=== PATIENT | male | born 1985 | race Caucasian/White ===

== ENCOUNTER 2025-02-25 15:48 | Emergency (ER) | payer MEDICAID, SELFPAY ==
--- OUTSIDE RECORDS SUMMARY | 2025-02-25 15:54 | XMS_ITS | Patient Health Record ---
Author Organization [facility] Address [address] [place] [address] Care Team Providers Care Learning Facilitator Name Role Phone Richar Griffith Primary Care Provider Musa Burns Unavailable [phone] MUSA PURDY Unavailable [phone] Allergies No Known Allergies Reason For Referral No Information Medications Medication SIG (Take, Route, Frequency, Duration) Notes Start Date End Date Status Doxycycline Hyclate 100 MG 1 tablet Orally Twice a day; Duration: 14 days 03/21/2020 Not-Taking Vitamin B12 *Pick strength-form from [facility] for [facility]* Not-Taking Vitamin C *Pick strength-form from [facility]* Not-Taking Flagyl 500 MG 1 tablet Orally BID; Duration: 7 days replaces Cipro *Pick strength-form from [facility]* 09/13/2019 Not-Taking Vitamin D *Pick strength-form from [facility]* Not-Taking Flagyl 500 MG 1 tablet Orally BID; Duration: 7 days *Pick strength-form from [facility]* 11/22/2019 Not-Taking Cipro 500 MG 1 tablet Orally every 12 hrs; Duration: 3 day(s) 09/13/2019 Not-Taking Iron *Pick strength-form from [facility]* Not-Taking Flagyl 500 MG 1 tablet Orally Three times a day; Duration: 7 days *Pick strength-form from [facility] for [facility]* 01/24/2020 Not-Taking Doxycycline Hyclate 100 MG 1 capsule Orally every 12 hrs; Duration: 5 days 08/23/2020 Not-Taking Clotrimazole-Betame thasone 1-0.05 % 1 application Externally Twice a day; Duration: 14 days 02/29/2020 Not-Taking Immunizations Vaccine Route Administration Date Status Comme nts Influenza (split), seasonal, intradermal, preservative free Unknown 07/14/2019 Refused Immunization Anthony patel by from source eCW:: Problems Problem Type SNOMED Code ICD Code Onset Dates Problem Status W/U Status Risk Notes Problem Tinea corporis (01568877) Tinea corporis (B35.4) Active confirmed 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 Problem Pelvic and perineal pain (097312873) Pelvic pain in male (R10.2) Active confirmed Problem 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 Vital Signs Heart Rate 66 /min 03/24/2024 Blood pressure diastolic 90 mm Hg 03/24/2024 Height-cm 167.64 cm 03/24/2024 Weight-kg 79.38 kg 03/24/2024 Height 66 in 03/24/2024 Blood pressure systolic 130 mm Hg 03/24/2024 Weight 175 lbs 03/24/2024 BMI 28.24 kg/m2 03/24/2024 Encounters Encounter Location Date Provider Diagnosis [facility] [address] [place] [address] 02/27/2024 Musa Pevril Testicle pain N50.819 ; Orchitis N45.2 and Hydrocele, left N43.3 [facility] [address] [place] [address] 03/24/2024 MUSA MIKER Epididymitis, right N45.1 ; Orchitis N45.2 ; Hydrocele, left N43.3 and Pain in right testicle N50.811 Assessments Encounter Date Diagnosis (ICD Code) Assessment Notes Treatment Notes Treatment Clinical Notes Section Notes 03/24/2024 Orchitis (ICD-10 - N45.2) Will continue surveillance. He will return in 1yr with UA/PVR. 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 02/27/2024 Orchitis (ICD-10 - N45.2) Pt with normal UA and emptying but LAP with LUTS. PSA of 1.22 on 01/30/24. Also, patient had PETTY. Reviewed images independently as well as reviewed official radiology report. He had findings of a small L hydrocele. However, he reports pain/swelling has been primarily to his R side. Denies any scrotal pain or erythema. Should they increase in size or become painful, we can discuss surgical intervention. I have recommended him a course of bactrim for 2 weeks, but understands it can take 4-6w course at times. We discussed methods for symptomatic support including scrotal support, NSAIDs, and warm sitz baths. He will come back with Dr. Purdy following course of antibiotics for symptom reassessment. We discussed options for surgical intervention versus monitoring, but patient is not having any pain or discomfort. There is good blood flow to testicles, and no concern for infection at this time. Continue conservative management with scrotal elevation and support. If it becomes painful or uncomfortable, he will notify us and we can proceed. For now, no need for further workup. All questions that were asked, were answered. Patient satisfied with plan. 02/27/2024 Testicle pain (ICD-10 - N50.819) Pt with normal UA and emptying but LAP with LUTS. PSA of 1.22 on 01/30/24. Also, patient had PETTY. Reviewed images independently as well as reviewed official radiology report. He had findings of a small L hydrocele. However, he reports pain/swelling has been primarily to his R side. Denies any scrotal pain or erythema. Should they increase in size or become painful, we can discuss surgical intervention. I have recommended him a course of bactrim for 2 weeks, but understands it can take 4-6w course at times. We discussed methods for symptomatic support including scrotal support, NSAIDs, and warm sitz baths. He will come back with Dr. Purdy following course of antibiotics for symptom reassessment. We discussed options for surgical intervention versus monitoring, but patient is not having any pain or discomfort. There is good blood flow to testicles, and no concern for infection at this time. Continue conservative management with scrotal elevation and support. If it becomes painful or uncomfortable, he will notify us and we can proceed. For now, no need for further workup. All questions that were asked, were answered. Patient satisfied with plan. 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 02/27/2024 Hydrocele, left (ICD-10 - N43.3) Pt with normal UA and emptying but LAP with LUTS. PSA of 1.22 on 01/30/24. Also, patient had PETTY. Reviewed images independently as well as reviewed official radiology report. He had findings of a small L hydrocele. However, he reports pain/swelling has been primarily to his R side. Denies any scrotal pain or erythema. Should they increase in size or become painful, we can discuss surgical intervention. I have recommended him a course of bactrim for 2 weeks, but understands it can take 4-6w course at times. We discussed methods for symptomatic support including scrotal support, NSAIDs, and warm sitz baths. He will come back with Dr. Purdy following course of antibiotics for symptom reassessment. We discussed options for surgical intervention versus monitoring, but patient is not having any pain or discomfort. There is good blood flow to testicles, and no concern for infection at this time. Continue conservative management with scrotal elevation and support. If it becomes painful or uncomfortable, he will notify us and we can proceed. For now, no need for further workup. All questions that were asked, were answered. Patient satisfied with plan. 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 03/24/2024 Other I, Jenise Peralta, [place], am scribing for, and in the presence of, Dr. Purdy. I, Dr. Musa Purdy, personally performed the services prescribed in this documentation, as scribed by Jenise Peralta, in my presence, and it is both accurate and complete. 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 Plan Of Treatment Pending Test Test Name Order Date Urinalysis, Routine 02/27/2024 Culture Urine [id number] 02/29/2020 [facility] Abs IgG & IgM, Immunoblot 73778, 36336 10/11/2020 Microscopic Urine [id number] 02/29/2020 Miscellaneous Test 03/21/2020 Herpes Virus DNA QL PCR--[id number] 0 COVID 19 PCR--[id number] 09/27/2019 Next Appt Details Provider Name:Musa Kent, 03/24/2025 11:00:00 AM, [address] [place], [address], Insurance Providers Payer Name Payer Address Payer Phone Subscriber Number Group Number Insured Name Patient Relationship to Insured Coverage Start Date Coverage End Date [employer] [address] [place] [address] [id number] Denilson Chaney Self - patient is the insured Medical (General) History Medical History History ICD Code anemia migraine headaches jaw pain Surgical History Surgery Date(Month/Year) vasectomy 2015 cysto Hospitalization History Reason Date(Month/Year) ER visit dizzy, felt sick, almost passed out 10/03/20
--- OUTSIDE RECORDS SUMMARY | 2025-02-25 15:54 | XMS_ITS | Patient Health Record ---
Author Organization [facility] Address [address] [place] [address] Care Team Providers Care Sports Equipment Racker Name Role Phone Fernanda Bellamy Primary Care Provider Iván Torres Allergies No Known Allergies Reason For Referral No Information Medications Medication SIG (Take, Route, Frequency, Duration) Notes Start Date End Date Status Flagyl 500 MG Tablet 1 tablet Orally BID; Duration: 7 days replaces Cipro 09/13/2019 Not-Taking Cipro 500 MG Tablet 1 tablet Orally every 12 hrs; Duration: 3 day(s) 09/13/2019 Not-Taking Clotrimazole-Betamet hasone 1-0.05 % Cream 1 application Externally Twice a day; Duration: 14 days 02/29/2020 Not-Taking Doxycycline Hyclate 100 MG Capsule 1 capsule Orally every 12 hrs; Duration: 5 days 08/23/2020 Not-Taking Vitamin D Not-Taking Doxycycline Hyclate 100 MG Tablet 1 tablet Orally Twice a day; Duration: 14 days 03/21/2020 Not-Taking Vitamin B12 Not-Taki ng Iron Not-Taking Vitamin C Not-Taking Flagyl 500 MG Tablet 1 tablet Orally BID; Duration: 7 days 11/22/2019 Not-Taking Flagyl 500 MG Tablet 1 tablet Orally Three times a day; Duration: 7 days 01/24/2020 Not-Taking Immunizations Vaccine Route Administration Date Status Comme nts Influenza (split), seasonal, intradermal, preservative free Unknown 07/14/2019 Refused Social History Tobacco Use: Social History Observation Description Date Details (start date - stop date) Former Smoker NA - NA Social History Depression Screening Social Info Question Answer Notes PHQ-9 Little interest or pleasure in doing thin gs Not at all Feeling down, depressed, or hopeless Not at all Trouble falling or staying asleep, or sleeping t oo much Not at all Feeling tired or having little energy Not at all Poor appetite or overeating Not at all Feeling bad about yourself, or that you are a failure, or have let yourself or your family down Not at all Trouble concentrating on thi ngs, such as reading the newspaper or watching television Not at all Moving or speaking so slowly that other people could have noticed. Or the opposite ? being so fidgety or restless that you have been moving around a lot more than usual Not at all Thoughts that you would be b ana off , or of hurting yourself in some way Not at all Total Score 0 Drugs/Alcohol: Social Info Question Answer Notes Alcohol Screen (Audit-C) Did you have a drink containing alcohol in the past year? No Points 0 Interpretation Negative Tobacco Use: Social Info Question Answer Notes xTobacco Use/Smoking Are you a former smoker How long has it been since you last smoked? 5-10 years Additional Details Category Social Info Options Details Miscellaneous: Marital status: Occupation: Works full-time Drugs/Alcohol: Do you smoke marijuana? 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 Plan Of Treatment Pending Test Test Name Order Date Culture Urine [id number] 02/29/2020 [facility] Abs IgG & IgM, Immunoblot 65511, 03906 10/11/2020 Microscopic Urine 20734 02/29/2020 Miscellaneous Test 03/21/2020 Herpes Virus DNA QL PCR--[id number] 0 COVID 19 PCR--32933 09/27/2019 Insurance Providers Payer Name Payer Address Payer Phone Subscriber Number Group Number Insured Name Patient Relationship to Insured Coverage Start Date Coverage End Date [employer] [address] [place] [phone] [id number] Denilson Chaney Self - patient is the insured [place] Medicaid [address] [place] [id number] Denilson Chaney Self - patient is the insured Medical (General) History Medical History History ICD Code anemia migraine headaches jaw pain Surgical History Surgery Date(Month/Year) vasectomy 2014 Hospitalization History Reason Date(Month/Year) ER visit dizzy, felt sick, almost passed out 10/03/20
--- OUTSIDE RECORDS SUMMARY | 2025-02-25 15:54 | XMS_ITS | Continuity of Care Document ---
Author Organization [place] [facility] [place] Address [address] [address] Assessment No assessment recorded. Plan of Treatment Reminders Order Date Submit Date Provider Last Modified By Organization Details Last Modified Time Details Appointments None recorded. Lab urinalysis, dipstick 2024 In-House Results, For Internal Use Only, Do Not Delete/merge, [id number] 12:03:24 unlisted lab - trichomonas amplified 2024 [place] [facility], [address], [address], [place], [address], 5 14:56:08 CT + NG DNA, PCR, unspecified specimen 2024 [place] [facility], [address], [address], [place], [address], 14:56:07 Referral None recorded. Procedures None recorded. Surgeries None recorded. Imaging None recorded. Medication Orders Cipro 500 mg tablet 2024 025 [facility], [address] [place], [address], 12:17:53 Patient TargetsNo targets recorded. Patient Instructions Encounter Date Encounter Id Patient Instructions Last Modified By Organization Details Last Modified Time 02/18/2025 [id number] Patient discharged to self to home in stable condition. Follow up instructions given. Not available 02/18/2025 12:11:06 Reason for Referral None Reported. Results Created Date Observation Date Name Description Value Unit Range Abnormal Flag Note LastModifiedBy Organization Detail LastModifiedTime 02/09/2002/08/2025 URINA LYSIS , DIPST ICK leukocytes Small Not Available [facility] readeo Hie [address], [place], [address], 02/08/2025 23:35:45 02/09/20 25 02/08/2025 URINA LYSIS , DIPST ICK nitrite negati ve Not Available [place] readeo Hie [address], [place], [address], 02/08/2025 23:35:45 02/09/20 25 02/08/2025 URINA LYSIS , DIPST ICK urobilinogen .2 Not Available [facility] readeo Hie [address], [place], [address], 02/08/2025 23:35:45 02/09/20 25 02/08/2025 URINA LYSIS , DIPST ICK protein 30 Not Available [place] readeo Hie [address], [place], [address], 02/08/2025 23:35:45 02/09/20 25 02/08/2025 URINA LYSIS , DIPST ICK pH 6.5 Not Available [place] readeo Hie [address], [place], [address], 02/08/2025 23:35:45 02/09/20 25 02/08/2025 URINA LYSIS , DIPST ICK blood Large Not Available [place] readeo Hie [address], [place], [address], 02/08/2025 23:35:45 02/09/20 25 02/08/2025 URINA LYSIS , DIPST ICK specific gravity 1.025 Not Available [facility] readeo Hie [address], [place], [address], 02/08/2025 23:35:45 02/09/20 25 02/08/2025 URINA LYSIS , DIPST ICK ketone Negati ve Not Available [facility] Hie [address], [place], [address], 02/08/2025 23:35:45 02/09/2002/08/2025 URINA LYSIS , DIPST ICK bilirubin Negati ve Not Available [facility] Hie [address], [place], [address], 02/08/2025 23:35:45 02/09/20 25 02/08/2025 URINA LYSIS , DIPST ICK glucose Negati ve Not Available [facility] Hie [address], [place], [address], 02/08/2025 23:35:45 02/09/20 25 02/08/2025 urina lysis , dipst ick Leukocytes Small Not Available In-Hous e Results For Internal Use Only, Do Not Delete/merge, 02/08/2025 14:19:04 02/09/2002/08/2025 urina lysis , dipst ick Nitrite negati ve Not Available In-House Results For Internal Use Only, Do Not Delete/merge, 02/08/2025 14:19:04 02/09/2002/08/2025 urina lysis , dipst ick Urobilinogen .2 Not Available In-Ho use Results For Internal Use Only, Do Not Delete/merge, 02/08/2025 14:19:04 02/09/2002/08/2025 urina lysis , dipst ick Protein 30 Not Available In-House Results For Internal Use Only, Do Not Delete/merge, 02/08/2025 14:19:04 02/09/20 25 02/08/2025 urina lysis , dipst ick pH 6.5 Not Available In-House Results For Internal Use Only, Do Not Delete/merge, 02/08/2025 14:19:04 02/09/20 25 02/08/2025 urina lysis , dipst ick Blood Large Not Available In-House Results For Internal Use Only, Do Not Delete/merge, 02/08/2025 14:19:04 02/09/20 25 02/08/2025 urina lysis , dipst ick Specific [place] 1.025 Not Available In-Mauricio se Results For Internal Use Only, Do Not Delete/merge, 02/08/2025 14:19:04 02/09/20 25 02/08/2025 urina lysis , dipst ick Ketone Negati ve Not Available In-House Results For Internal Use Only, Do Not Delete/merge, 02/08/2025 14:19:04 02/09/20 25 02/08/2025 urina lysis , dipst ick Bilirubin Negati ve Not Available In-House Results For Internal Use Only, Do Not Delete/merge, 02/08/2025 14:19:04 02/09/20 25 02/08/2025 urina lysis , dipst ick Glucose Negati ve Not Available In-House Results For Internal Use Only, Do Not Delete/merge, 02/08/2025 14:19:04 02/19/20 25 02/19/2025 GC/CH LAMYD IA - AMP N gonorrhoeae Negati ve negati ve Not Available [facility] [address] [place], [address], 02/19/2025 14:56:07 02/19/20 25 02/19/2025 GC/CH LAMYD IA - AMP chlamydia trachomatis Negati ve negati ve Comme nt for GC/CH LAMYD IA - AMP This test is inten ded for medic al purpo ses only and is not valid for the evalu ation of suspe cted sexua l abuse or for other foren sic purpo ses. The perfo rmanc e of this test has not been evalu ated for pedia tric patie nts. In addit ion to the FDA appro michael speci men types , this NAAT assay was valid ated by [facility] for SureP ath and ureth ral swab speci mens. FDA clear ance or appro ramone is not requi red for clini geena use. Not Available [facility] [address] [place], [address], 02/19/2025 14:56:07 02/19/2002/19/2025 TRICH OMONA S - AMP trichomonas vaginalis Negati ve negati ve Comme nt for TRICH OMONA S - AMP This test is inten ded for medic al purpo ses only and is not valid for the evalu ation of suspe cted sexua l abuse or for other foren sic purpo ses. The perfo rmanc e of this test has not been evalu ated for pedia tric patie nts. In addit ion to the FDA appro michael speci men types , this NAAT assay was valid ated by [facility] for SureP ath and ureth ral swab speci mens. FDA clear ance or appro ramone is not requi red for clini geena use. Not Available [facility] [address] [facility], [place], [address], 02/19/2025 14:56:08 02/19/2002/18/2025 URINA LYSIS , DIPST ICK leukocytes Negati ve Not Available [facility] Hie [address], [place], [address], 02/18/2025 17:07:27 02/19/2002/18/2025 URINA LYSIS , DIPST ICK nitrite negati ve Not Available [facility] Hie [address], [place], [address], 02/18/2025 17:07:27 02/19/2002/18/2025 URINA LYSIS , DIPST ICK urobilinogen .2 Not Available [facility] Hie [address], [place], [address], 02/18/2025 17:07:27 02/19/2002/18/2025 URINA LYSIS , DIPST ICK protein Negati ve Not Available [facility] Hie [address], [place], [address], 02/18/2025 17:07:27 02/19/2002/18/2025 URINA LYSIS , DIPST ICK pH 6.0 Not Available [facility] Hie [address], [place], [address], 02/18/2025 17:07:27 02/19/2002/18/2025 URINA LYSIS , DIPST ICK blood Small Not Available [facility] Hie [address], [place], [address], 02/18/2025 17:07:27 02/19/2002/18/2025 URINA LYSIS , DIPST ICK specific gravity 1.020 Not Available [facility] Hie [address], [place], [address], 02/18/2025 17:07:27 02/19/2002/18/2025 URINA LYSIS , DIPST ICK ketone Negati ve Not Available [facility] Hie [address], [place], [address], 02/18/2025 17:07:27 02/19/2002/18/2025 URINA LYSIS , DIPST ICK bilirubin Negati ve Not Available [facility] [address], [place], [address], 02/18/2025 17:07:27 02/19/2002/18/2025 URINA LYSIS , DIPST ICK glucose Negati ve Not Available [facility] Hie [address], [place], [address], 02/18/2025 17:07:27 02/19/2002/18/2025 urina lysis , dipst ick Leukocytes Negati ve Not Available In-House Results For Internal Use Only, Do Not Delete/merge, 02/18/2025 12:02:02/19/2002/18/2025 urina lysis , dipst ick Nitrite negati ve Not Available In-House Results For Internal Use Only, Do Not Delete/merge, 02/18/2025 12:02:02/19/2002/18/2025 urina lysis , dipst ick Urobilinogen .2 Not Available In-Ho use Results For Internal Use Only, Do Not Delete/merge, 02/18/2025 12:02:02/19/2002/18/2025 urina lysis , dipst ick Protein Negati ve Not Available In-House Results For Internal Use Only, Do Not Delete/merge, 02/18/2025 12:02:02/19/2002/18/2025 urina lysis , dipst ick pH 6.0 Not Available In-House Results For Internal Use Only, Do Not Delete/merge, 02/18/2025 12:02:02/19/2002/18/2025 urina lysis , dipst ick Blood Small Not Available In-House Results For Internal Use Only, Do Not Delete/merge, 02/18/2025 12:02:28 02/19/2002/18/2025 urina lysis , dipst ick Specific [place] 1.020 Not Available In-[place]icio se Results For Internal Use Only, Do Not Delete/merge, 02/18/2025 12:02:02/19/20 25 02/18/2025 urina lysis , dipst ick Ketone Negati ve Not Available In-House Results For Internal Use Only, Do Not Delete/merge, 02/18/2025 12:02:02/19/20 25 02/18/2025 urina lysis , dipst ick Bilirubin Negati ve Not Available In-House Results For Internal Use Only, Do Not Delete/merge, 02/18/2025 12:02:02/19/20 25 02/18/2025 urina lysis , dipst ick Glucose Negati ve Not Available In-House Results For Internal Use Only, Do Not Delete/merge, [id number] 02/18/2025 12:02:28 Result Notes None recorded. Procedures Surgical History Date Name Laterality Status Provider Name and Address Organization Details Recorded Time Vasectomy completed Not Available [facility] 1 06/04/2023 21:06:06 Imaging Results None recorded. Procedure Notes None recorded. Medical Equipment None Reported. Allergies No known drug allergies Medications Name Sig Start Date Stop Date Status Note LastModified by Organization Details LastModified Time promethazin e-DM 6.25 mg-15 mg/5 mL oral syrup Take 5 mL every 4-6 hours by oral route. 02/08 completed Not Available Not Available Not Available azithromyci n 250 mg tablet TAKE 2 TABLETS (500 MG) BY ORAL ROUTE ONCE DAILY FOR 1 DAY THEN 1 TABLET (250 MG) BY ORAL ROUTE ONCE DAILY FOR 4 DAYS active Not Available Not Available No t Available tizanidine 4 mg tablet Take 1 tablet 3 times a day by oral route as needed. 04/16 completed Not Available Not Available Not Available benzonatate 200 mg capsule Take 1 capsule 3 times a day by oral route for 10 days. 02/08 completed Not Available Not Available Not Available acetaminoph en 300 mg-codeine 30 mg tablet Take 1 tablet 3 times a day by oral route as needed for 7 days. 01/05 completed Not Available Not Available Not Available sulfamethox azole 800 mg-trimetho prim 160 mg tablet TAKE 1 TABLET BY MOUTH TWICE DAILY FOR 14 DAYS 04/16 completed Not Available Not Available Not Available ondansetron 8 mg disintegrat ing tablet Place 1 tablet twice a day by transling ual route as needed. active Not Available Not Available No t Available amoxicillin 875 mg tablet Take 1 tablet every 12 hours by oral route for 14 days. 02/18 completed Not Available Not Available Not Available hydrocodone 7.5 mg-acetamin ophen 325 mg tablet TAKE 1 TABLET BY MOUTH EVERY 4 HOURS NEEDED FOR PAIN 01/28 completed Not Available Not Available Not Available neomycin-po lymyxin-dex ameth 3.5 mg/mL-10,00 0 unit/mL-0.1 % eye drops instill 2 drops into affected eye(s) EVERY 3 TO 4 HOURS 05/07 completed Not Available Not Available Not Available Cipro 500 mg tablet Take 1 tablet every 12 hours by oral route for 5 days. 2024 active Not Available Not Available Not Avai lable methylpredn isolone 4 mg tablets in a dose pack TAKE DIRECTED ON PACKAGE FOR 6 DAYS 02/07 completed Not Available Not Available Not Available naproxen 500 mg tablet Take 1 tablet twice a day by oral route as needed. 04/16 completed Not Available Not Available Not Available chlorhexidi ne gluconate 0.12 % mouthwash SWISH 15 ML FOR 30 SECONDS THEN SPIT TWICE DAILY FOR 7 DAYS 06/23 completed Not Available Not Available Not Available Vitals Date Recorded Body height Body temperature Oxygen saturation Oxygen saturation in Arterial blood by Pulse oximetry Heart rate Systolic And Diastolic Provider Name and Address Organization Details Last Updated DateTime 5 167.64 cm 98.4 [degF] 99 % 99 % 63 /min 113/77 mm[Hg] [facility] 5 11:56:19 Social History Question Answer Notes LastModified by Organizat ion Details LastModified Time Tobacco Smoking Status Former Smoker Not Available [facility] 04/04/2024 21:06:31 Are You Blind Or Do You Have Difficulty Seeing? No [id number] Information not available 04/04/2024 What Is Your Level Of Caffeine Consumption? Occasional [id number] Information not available 04/04/2024 Are You Deaf Or Do You Have Serious Difficulty Hearing? No [id number] Information not available 04/04/2024 What Type Of Diet Are You Following? REGULAR [id number] Information not available 04/04/2024 What Was The Date Of Your Most Recent Tobacco Screening? 11/22/2024 [email or web address] Information not available 11/22/2024 How Many Children Do You Have? 5 [id number] Information not available 04/04/2024 What Is Your Relationship Status? [id number] Information not available 04/04/2024 Has Tobacco Cessation Counseling Been Provided? No [id number] Information not available 04/04/2024 Do You Have Difficulty Walking Or Climbing Stairs? No [id number] Information not available 04/04/2024 Sex: Unknown Functional Status Question Answer Note LastModified by Organizat ion Details LastModified Time Do you use any illicit or recreational drugs? No [id number] Information not available 04/04/2024 Do you or have you ever used any other forms of tobacco or nicotine? No [id number] Information not available 04/04/2024 What is your level of alcohol consumption? None [id number] Information not available 04/04/2024 Are you currently employed? Yes [id number] Information not available 04/04/2024 Do you have difficulty doing errands alone? No [id number] 00 Information not available 04/04/2024 Are you able to care for yourself independently? Yes [id number] Information not available 04/04/2024 Do you have difficulty dressing, bathing, grooming, or toileting? No [id number].[id number] 00 Information not available 04/04/2024 Do you or have you ever used any nicotine-free cigarettes, vape, or chewing tobacco? No [email or web address] Information not available 04/16/2024 Mental Status Question Answer Note LastModified by Organizat ion Details LastModified Time Do you have difficulty concentrating, remembering or making decisions? No [id number] 0 Information not available 04/04/2024 Family History Relationship Description Onset Age of this Age Resolved Age Notes LastModified by Organization Details LastModified Time Father No current problems or disability [email or web address] Not available 04/16 08:54:23 Mother No current problems or disability [email or web address] Not available 04/16 08:54:23 Medical History No medical history recorded. Past Encounters Encounter ID Performer Location Encounter Start Date Encounter Closed Date Diagnosis/Indication Diagnosis SNOMED-CT Code Diagnosis ICD10 Code Diagnosis IMO Codes Diagnosis Note [id number] LILI NAZARIO [address] [address] 01/28/2025 11:49:55 01/31/2025 14:58:04 Viral upper respiratory tract infection 965036378 J06.9 [id number] pt advised to complete course of antibiotic s, alternate tylenol/ib u for fever, stay well hydrated, and to follow up to clinic if symptoms don't resolve or worsen Chronic cough 08635630 R 05.3 04076 use as directed. [id number] LILI NAZARIO [address] [address] 02/08/2025 14:13:31 02/08/2025 15:04:10 Julio César hematuria [id number] R31.0 176086 pt advised to complete course of antibiotic s, d/c amoxicilli n that he was taking and follow up in one week. if symptoms haven't approved will set up with referral to urology. [id number] LILI NAZARIO [address] [address] 02/18/2025 11:39:42 02/22/2025 12:40:36 Dysuria [id number] R30.0 07851 continue abx, will check urine for STI and call with update next friday. if symptoms persists we will send to urology Health Concerns Section Related Observation LastModified by Organization Detai ls LastModified Time None Recorded Concern Status LastModified by Organization Details LastModified Time None Recorded Payers Encounter Date Sequence Insurance Name Policy Number Policy Tapia Covered Member ID Tapia Member ID Guarantor Name 02/18/2025 1 [employer]HMET DENISE - [employer] 2 (PPO) Denilson Chaney [id number] 1 Denilson Chaney Notes Date Note Type Note Provider Name and Address Organization Details Recorded Time 5 text/html HematuriaReported by PatientHPIFor associated symptoms, patient reportshematuriabut reportsno abdominal pain,no back pain,no groin pain,no chills,no constipation,no diarrhea,no dribbling,no dysuria,complete emptying,no frequency,no nausea,no nocturia,no odor,no straining stream,no stress incontinence,no temperature,no urgency,no urge incontinence,no vomiting, andno weight loss. For quality, patient reportsblood color bright red. For severity, patient reportsno pain. For duration, patient reportsintermittent. For onset/timing, patient reportsinfrequent. For modifying factors, patient reportsnothing makes it worseandnothing gives relief. Patient states that he peed blood this morning but he is not having any pain. ABELARDO RUBALCAVA PA-C [address], [place], [address], [place] - [facility] 02/18/2025 12:11:25
--- OUTSIDE RECORDS SUMMARY | 2025-02-25 15:55 | XMS_ITS | Data Portability ---
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 Plan of Treatment Reminders Order Date Submit Date Provider Last Modified By Organization Details Last Modified Time Details Appointments None recorded. Lab CMP, serum or plasma 2020 021 DAIANA Not available 05:04:36 CBC w/ auto diff 2020 DAIANA Not available 04:32:40 ESR (erythrocyt e sedimentati on rate), blood 2020 DAIANA Not available 04:50:39 C-reactive protein, quantitativ e, serum or plasma 2020 021 DAIANA Not available 05:04:37 urinalysis complete, reflex culture 2020 021 [email or web address] Not available 12:34:04 Referral behavioral health referral 2019 020 [email or web address] 5 [facility], [address] [place], [address], 0 14:10:08 Procedures None recorded. Surgeries None recorded. Imaging XR, kidney + ureter + bladder 2020 021 [facility] (Registration ), [address], [place], [address], 10:07:52 Medication Orders None recorded. Patient TargetsNo targets recorded. Patient Instructions Encounter Date Encounter Id Patient Instructions Last Modified By Organization Details Last Modified Time 12/29/2019 [id number] Meds as directed. Care instructions given. Return to clinic if sx persist or worsen. RTC as scheduled- sooner if needed. Discharged to self to home in stable condition. [email or web address] Not available 12/29/2019 17:47:14 04/26/2020 [id number] healthy upper back: exercises [email or web address] Not available 04/26/2020 19:49:17 back pain: care instructions [email or web address] Not available 04/26/2020 19:49:17 Patient discharged to self to home in stable condition. Follow up instructions given. [email or web address] Not available 04/26/2020 17:07:46 06/21/2020 [id number] Patient discharged to self to ER in stable condition. Follow up instructions given. [email or web address] Not available 06/22/2020 10:07:36 10/31/2020 [id number] Patient discharged to self to home in stable condition. Follow up instructions given. [email or web address] Not available 11/01/2020 17:10:03 02/15/2021 [id number] [facility] [place]ACC[place]_HESITANCY [email or web address] Not available 02/15/2021 15:46:10 Jayde Learns About Germ-Busting [email or web address] Not available 02/15/2021 15:46:10 coronavirus (covid-19): care instructions [email or web address] Not available 02/15/2021 15:46:09 learning about coronavirus (covid-19) [email or web address] Not available 02/15/2021 15:46:10 Patient discharged to self to home in stable condition. Follow up instructions given. [email or web address] Not available 02/15/2021 15:45:35 Reason for Referral Behavioral Health Referral f or Anxiety Referring Physician: Venita Avery, Family Medicine, Encounter Date: 12/29/2019 Results Created Date Observation Date Name Description Value Unit Range Abnormal Flag Note LastModifiedBy Organization Detail LastModifiedTime 06/21/19 21 06/23/2020 cultu re, urine urine culture See Note URINE CULTU RE Speci men Urine Winter Top Tube CUL TURE* * No growt h (<1,0 00 cfu/m L) BMI - [facility] [address] [place] [address] Labor atory Dire tor: [place] M.D. CLIA# [id number] Not Available [facility] [address] [place], [address], 06/23/2020 11:53:42 11/01/19 21 11/01/2020 CBC w/ auto diff WBC 3.5 K/uL 4.0-11 .0 low Not Available [facility] [address] [place], [address], 11/01/2020 04:32:40 11/01/19 21 11/01/2020 CBC w/ auto diff RBC 4.78 M/uL 4.30-5 .70 Not Available [facility] [address] [place], [address], 11/01/2020 04:32:40 11/01/19 21 11/01/2020 CBC w/ auto diff hemoglobin 14.0 g/dL 13.0-1 7.5 Not Available [facility] [address] [place], [address], 11/01/2020 04:32:40 11/01/19 21 11/01/2020 CBC w/ auto diff hematocrit 41.7 % 39.0-5 5.0 Not Available [facility] [address] [place], [address], 11/01/2020 04:32:40 11/01/19 21 11/01/2020 CBC w/ auto diff MCV 87.2 fL 78.0-1 02.0 Not Available [facility] [address] [place], [address], 11/01/2020 04:32:40 11/01/19 21 11/01/2020 CBC w/ auto diff MCH 29.3 pg 25.0-3 5.0 Not Available [facility] [address] [place], [address], 11/01/2020 04:32:40 11/01/19 21 11/01/2020 CBC w/ auto diff MCHC 33.6 g/dL 30.0-3 8.0 Not Available [facility] [address] [place], [address], 11/01/2020 04:32:40 11/01/19 21 11/01/2020 CBC w/ auto diff RDW 13.3 % 11.5-1 6.0 Not Available [facility] [address], [place], [address], 11/01/2020 04:32:40 11/01/19 21 11/01/2020 CBC w/ auto diff platelet count 210 K/uL 150-45 0 Not Available [facility] [address] [place], [address], 11/01/2020 04:32:40 11/01/19 21 11/01/2020 CBC w/ auto diff abs neutrophils 1.3 K/uL 1.8-7. 0 low Not Available [facility] [address] [place], [address], 11/01/2020 04:32:40 11/01/19 21 11/01/2020 CBC w/ auto diff abs lymphocytes 1.4 K/uL 1.0-4. 0 Not Available [facility] [address] [place], [address], 11/01/2020 04:32:40 11/01/19 21 11/01/2020 CBC w/ auto diff abs monocytes 0.8 K/uL 0.1-1. 1 Not Available [facility] [address], [place], [address], 11/01/2020 04:32:40 11/01/19 21 11/01/2020 CBC w/ auto diff abs eosinophils 0.0 K/uL 0.0-0. 5 Not Available [facility] [address] [place], [address], 11/01/2020 04:32:40 11/01/19 21 11/01/2020 CBC w/ auto diff abs basophils 0.0 K/uL 0.0-0. 3 Not Available [facility] [address] [place], [address], 11/01/2020 04:32:40 11/01/19 21 11/01/2020 CBC w/ auto diff abs immature grans 0.0 K/uL 0.0-0. 1 Not Available [facility] [address] [place], [address], 11/01/2020 04:32:40 11/01/19 21 11/01/2020 CBC w/ auto diff neutrophils 37.1 % Not Available [facility] [address] [place], [address], 11/01/2020 04:32:40 11/01/19 21 11/01/2020 CBC w/ auto diff lymphocytes 40.5 % Not Available [facility] [address] [place], [address], 11/01/2020 04:32:40 11/01/19 21 11/01/2020 CBC w/ auto diff monocytes 22.4 % Not Available [facility] [address], [place], [address], 11/01/2020 04:32:40 11/01/19 21 11/01/2020 CBC w/ auto diff eosinophils 0.0 % Not Available [facility] [address] [place], [address], 11/01/2020 04:32:40 11/01/19 21 11/01/2020 CBC w/ auto diff basophils 0.0 % Not Available [facility] [address], [place], [address], 11/01/2020 04:32:40 11/01/19 21 11/01/2020 CBC w/ auto diff immature grans 0.0 % Not Available [facility] [address], [place], [address], 11/01/2020 04:32:40 11/01/19 21 11/01/2020 CBC w/ auto diff nucleated RBCs <1.0 /100_ WBCs <1 Not Available [facility] [address], [place], [address], 11/01/2020 04:32:40 11/01/19 21 11/01/2020 ESR (eryt hrocy te sedim entat ion rate) , blood sedimentatio n rate 9 mm/HR <15 Not Available [facility] [address], [place], [address], 11/01/2020 04:50:39 11/01/19 21 11/01/2020 CMP, serum or plasm a sodium 140 mEq/L 135-14 6 Not Available [facility] [address], [place], [address], 11/01/2020 05:04:36 11/01/19 21 11/01/2020 CMP, serum or plasm a potassium 4.0 mEq/L 3.5-5. 4 Not Available [facility] [address] [place], [address], 11/01/2020 05:04:36 11/01/19 21 11/01/2020 CMP, serum or plasm a chloride 105 mEq/L 95-107 Not Available [facility] [address] [place], [place], [address], 11/01/2020 05:04:36 11/01/19 21 11/01/2020 CMP, serum or plasm a carbon dioxide 23 mEq/L 19-31 Not Available [facility] [address] [place], [address], 11/01/2020 05:04:36 11/01/19 21 11/01/2020 CMP, serum or plasm a anion gap 12 mEq/L 7-23 Not Available [facility] [address] [place], [address], 11/01/2020 05:04:36 11/01/1911/01/2020 CMP, serum or plasm a glucose non-fasting 83 mg/dL 70-139 Not Available [facility] [address] [place], [address], 11/01/2020 05:04:36 11/01/1911/01/2020 CMP, serum or plasm a urea nitrogen (BUN) 9 mg/dL 6-20 Not Available [facility] [address] [place], [address], 11/01/2020 05:04:36 11/01/19 21 11/01/2020 CMP, serum or plasm a creatinine 0.89 mg/dL 0.80-1 .40 Not Available [facility] [address] [place], [address], 11/01/2020 05:04:36 11/01/19 21 11/01/2020 CMP, serum or plasm a eGFR 130 mL/mi n/1.7 3m'2 >59 Not Available [facility] [address] [place], [address], 11/01/2020 05:04:36 11/01/19 21 11/01/2020 CMP, serum or plasm a eGFR non- amer 112 mL/mi n/1.7 3m'2 >59 Not Available [facility] [address] [place], [address], 11/01/2020 05:04:36 11/01/19 21 11/01/2020 CMP, serum or plasm a BUN/creatini ne ratio [address] [facility] [address], [place], [address], 11/01/2020 05:04:36 11/01/19 21 11/01/2020 CMP, serum or plasm a calcium total 9.9 mg/dL 8.5-10 .5 Not Available [facility] [address] [place], [address], 11/01/2020 05:04:36 11/01/19 21 11/01/2020 CMP, serum or plasm a protein total 6.8 g/dL 6.1-8. 3 Not Available [facility] [address], [place], [address], 11/01/2020 05:04:36 11/01/19 21 11/01/2020 CMP, serum or plasm a albumin 4.6 g/dL 3.5-5. 2 Not Available [facility] [address], [place], [address], 11/01/2020 05:04:36 11/01/19 21 11/01/2020 CMP, serum or plasm a globulin 2.2 g/dL 1.7-4. 3 Not Available [facility] [address] [facility] [place], [address], 11/01/2020 05:04:36 11/01/19 21 11/01/2020 CMP, serum or plasm a A/G ratio 2.1 ratio 0.9-2. 8 Not Available [facility] [address] [facility] [place], [address], 11/01/2020 05:04:36 11/01/19 21 11/01/2020 CMP, serum or plasm a bilirubin total 0.6 mg/dL 0.0-1. 2 Not Available [facility] [address] [facility] [place], [address], 11/01/2020 05:04:36 11/01/19 21 11/01/2020 CMP, serum or plasm a alkaline phosphatase 65 U/L 40-112 Not Available [facility] [address] [facility] [place], [address], 11/01/2020 05:04:36 11/01/19 21 11/01/2020 CMP, serum or plasm a AST (SGOT) 24 U/L 9-50 Not Available [facility] [address] [facility] [place], [address], 11/01/2020 05:04:36 11/01/19 21 11/01/2020 CMP, serum or plasm a ALT (SGPT) 27 U/L 5-50 Not Available [facility] [address] [facility] [place], [address], 11/01/2020 05:04:36 11/01/19 21 11/01/2020 C-kobi ctive prote in, quant itati ve, serum or plasm a C-reactive protein 0.2 mg/dL <0.5 Not Available [facility] [address] [place], [address], 11/01/2020 05:04:37 11/01/19 21 11/01/2020 no speci men for test reque sted test set(s) cancelled URM Not Available [facility] [address] [place], [address], 11/01/2020 11:59:36 11/01/19 21 11/01/2020 no speci men for test reque sted test cancelled 1 URINAL YSIS W/MICR O Not Available [facility] ([facility] [address] [place], [address], 11/01/2020 11:59:36 11/01/19 21 11/01/2020 no speci men for test reque sted test cancelled 2 SPOKE WITH STACY FOR COLLEC TION Comme nt for NO SPECI MEN RECEI PRISCILLA Pleas e refer to the [facility] Test Colle ction Manua l for speci men submi ssion guide lines . Not Available [facility] [address] [place], [address], 11/01/2020 11:59:36 11/04/19 21 11/02/2020 XR, kidne y + urete r + bladd er No observ ation record ed. [email or web address] [facility] [address] [place] [facility] [place], [address], 11/07/2020 10:42:30 11/16/1911/02/2020 XR, kidne y + urete r + bladd er No observ ation record ed. [email or web address] [facility] (Registration ) [address], [place], [address], 11/16/2020 09:18:02 Result Notes None recorded. Problems Name Problem SNOMED Code Status Onset Date Resolution Date Notes Provider Name and Address Organization Details Recorded Time Anxiety disorder 463451713 [facility] 14:40:09 Varicell a 39860444 Completed 201606/09/2018 Removal Reason: resolved Venita Avery NP, [address], [place], [address], [facility] [email or web address] [facility] 9 15:17:10 Constipa tion 29149355 Completed 201606/09/2018 Removal Reason: resolved Venita Avery NP, [address], [place], [address], [facility] [employer] [facility] 9 15:16:57 [facility] [id number] Completed 201606/09/2018 Removal Reason: resolved Venita Avery NP, [address], [place], [address], [facility] [employer] [facility] 9 15:17:03 Tobacco user [id number] Completed 201606/09/2019 Removal Reason: resolved Venita Avery NP, [address], [place], [address], [facility] [employer] [facility] 0 10:02:00 Persiste nt cough 871365976 Completed 201606/09/2018 Removal Reason: resolved Venita Avery NP, [address], [place], [address], [facility] [employer] [facility] 9 15:16:47 Sinus headache 1688854 Completed 201706/09/2018 Removal Reason: resolved Venita Avery NP, [address], [place], [address], [facility] 9 15:16:52 Adult health examinat ion Completed 201811/01/2020 LEONEL Centeno APRN [address], [place], [address], [facility] 17:10:31 Fatigue 92745322 Active 2018 Venita Avery NP, [address], [place], [address], [facility] 9 15:35:13 Cough 99004120 Completed 201801/13/2019 Removal Reason: resolved Shagufta Tim varela, [facility] 9 16:24:37 Body mass index 25-29 - overweig ht 165247474 Active 2018 Venita Avery NP, [address], [place], [address], [facility] 9 17:43:48 Iron deficien cy 20943066 Active 2018 Venita Avery NP, [address], [place], [address], [facility] 9 14:11:20 Vitamin D deficien cy 19292545 Active 2018 Venita Avery NP, [address], [place], [address], [facility] 9 14:12:04 Upper respirat ory infectio n 89460920 Completed 201801/13/2019 Removal Reason: resovled Shagufta Tim null, [facility] 9 16:24:27 Pain of hip region 80983854 Completed 201801/13/2019 Removal Reason: resovled Shagufta Tim null, [facility] 9 16:24:17 Allergic reaction 787186280 Completed 201803/16/2019 Removal Reason: resolved Venita Avery NP, [address], [place], [address], [facility] - [employer] [facility] 9 18:57:37 Pruritic rash 32149344 Completed 201803/16/2019 Removal Reason: resolved Venita Avery NP, [address], [place], [address], [place] [facility] [employer] [facility] 9 18:57:32 Disorder of vitamin B12 790092964 Active 2018 Venita Avery NP, [address], [place], [address], [facility] - [employer] [facility] 9 10:39:06 Abdomina l pain 15656865 Completed 201806/09/2019 Removal Reason: resolved Venita Avery NP, [address], [place], [address], [facility] - [employer] [facility] 0 10:01:42 Bronchit is [id number] Completed 201806/09/2019 Removal Reason: resolved Aditi Sevilla null, [place] - [employer] [facility] 0 09:46:41 History of angioede ma 66676010528 08 Active 2019 Venita Avery NP, [address], [place], [address], [facility] - [employer] [facility] 0 10:13:13 Dysuria 08240629 Active 2019 Venita Avery NP, [address], [place], [address], [place] [facility] [employer] [facility] 0 10:50:32 Anxiety 98830805 Active 2019 Venita Avery NP, [address], [place], [address], [facility] 0 05:20:41 Epigastr ic pain 55971794 Active 2019 Venita Avery , [employer] INVESTIGATOR, [address], [place], [address], [facility] 0 16:16:14 Pain in throat 231311606 Completed 201911/01/2020 LEONELRA HANCOCK N, CERTIFIED PHARMACY TECHNICIAN [address], [place], [address], [facility] 17:10:23 Respirat ory tract congesti on and cough 564185727 Completed 201911/01/2020 LEONEL Centeno, CERTIFIED PHARMACY TECHNICIAN [address], [place], [address], [facility] 17:10:19 Urethrit is 95182141 Completed 201911/01/2020 LEONEL Centeno, CERTIFIED PHARMACY TECHNICIAN [address], [place], [address], [facility] 17:10:14 Pain of right testicle 83197635203 062307 Active 2020 LEONEL Centeno, CERTIFIED PHARMACY TECHNICIAN [address], [place], [address], [facility] 17:07:24 Lower abdomina l pain 73062612 Active 2020 LEONEL Centeno CERTIFIED PHARMACY TECHNICIAN [address], [place], [address], [facility] 14:55:44 Tick bite 91467604 Active 2020 LEONEL Centeno CERTIFIED PHARMACY TECHNICIAN [address], [place], [address], [facility] 1 15:45:26 Problem Notes None recorded. Procedures Surgical History Date Name Laterality Status Provider Name and Address Organization Details Recorded Time 4 Oral surgery procedure completed Venita Avery NP, [address], [place], [address], [facility] 06/09/2019 10:04:39 Vasectomy completed Venita Avery NP, [address], [place], [address], [facility] 09/12/2019 06:45:14 Imaging Results None recorded. Procedure Notes None recorded. Medical Equipment None Reported. Allergies No known drug allergies Medications Name Sig Start Date Stop Date Status Note LastModified by Organization Details LastModified Time amoxicill in 500 mg capsule 06/09 completed Not Available Not Available Not Available doxycycli ne hyclate 100 mg capsule TAKE ONE CAPSULE BY MOUTH EVERY TWELVE HOURS FOR 5 DAYS 10/31 completed Not Available Not Available Not Available sucralfat e 1 gram tablet 03/29 completed Not Available Not Available Not Available prednison e 20 mg tablet Take 1 tablet twice a day by oral route for 5 days. 01/14 completed Not Available Not Available Not Available clindamyc in HCl 150 mg capsule 06/09 completed Not Available Not Available Not Available cyanocoba july (vit B-12) 1,000 mcg tablet Take 1 tablet every day by oral route for 30 days. 06/09 completed Not Available Not Available Not Available metronida zole 500 mg tablet 04/26 completed Not Available Not Available Not Available acetamino phen 300 mg-codein e 30 mg tablet 06/09 completed Not Available Not Available Not Available tramadol 50 mg tablet 06/09 completed Not Available Not Available Not Available amoxicill in 500 mg tablet Take 1 tablet every 8 hours by oral route for 10 days. 06/09 completed Not Available Not Available Not Available hydrocodo ne 7.5 mg-acetam inophen 325 mg tablet TAKE ONE TABLET BY MOUTH EVERY 4 HOURS NEEDED FOR PAIN 10/31 completed Not Available Not Available Not Available pantopraz ole 40 mg tablet,de layed release 03/29 completed pt not taking Not Available Not Available Not Available oseltamiv ir 75 mg capsule 08/05 completed Not Available Not Available Not Available ferrous sulfate 325 mg (65 mg iron) tablet Take 1 tablet twice a day by oral route for 30 days. 06/09 completed 06/09/19- stopped d/t GI sx Not Available Not Available Not Available esomepraz ole magnesium 40 mg capsule,d elayed release Take 1 capsule every day by oral route as needed for 30 days. 06/21 completed Not Available Not Available Not Available clotrimaz ole-betam ethasone 1 %-0.05 % topical cream 04/26 completed Not Available Not Available Not Available ergocalci ferol (vitamin D2) 1,250 mcg (50,000 unit) capsule Take 1 capsule every week by oral route for 30 days. 01/14 completed 01/13/19- not sure he needed to be taking this so he stopped Not Available Not Available Not Available epinephri ne 0.3 mg/0.3 mL injection , auto-inje ctor active Not Available Not Available Not Available levofloxa gerhard 750 mg tablet TAKE ONE TABLET BY MOUTH EVERY 24 HOURS FOR FOURTEEN DAYS 10/31 completed Not Available Not Available Not Available albuterol sulfate HFA 90 mcg/actua tion aerosol inhaler Inhale 2 puffs every 4 hours by inhalati on route as needed. 06/09 completed Not Available Not Available Not Available doxycycli ne hyclate 100 mg tablet 04/26 completed Not Available Not Available Not Available amoxicill in 875 mg-potass ium clavulana te 125 mg tablet Take 1 tablet every 12 hours by oral route for 7 days. 06/09 completed Not Available Not Available Not Available deslorata dine 5 mg disintegr ating tablet 06/09 completed Not Available Not Available Not Available niacin 06/09 completed Not Available Not Available Not Available ergocalci ferol (vitamin D2) 50 mcg (2,000 unit) tablet Take 1 tablet every day by oral route for 30 days. 06/09 completed 06/09/19- stopped a few months -- caused GI sx. Not Available Not Available Not Available Virtussin AC 10 mg-100 mg/5 mL oral liquid Take 10 mL every 4 hours by oral route as needed. 12/28 completed Not Available Not Available Not Available Vitals Date Recorded Body height Heart rate Respiratory rate Body temperature Body mass index (BMI) Body weight Oxygen saturation Oxygen saturation in Arterial blood by Pulse oximetry Systolic And Diastolic Provider Name and Address Organization Details Last Updated DateTime 1 167.64 cm 77 /min 19 /min 97.6 [degF] 29.9 kg/m2 44701.0 3 g 97 % 97 % 132/84 mm[Hg] [facility] 1 16:23:05 Date Recorded Body height Heart rate Respiratory rate Body temperature Body mass index (BMI) Body weight Oxygen saturation Oxygen saturation in Arterial blood by Pulse oximetry Systolic And Diastolic Provider Name and Address Organization Details Last Updated DateTime 1 167.64 cm 65 /min 17 /min 98.9 [degF] 29.3 kg/m2 21400.6 6 g 97 % 97 % 120/84 mm[Hg] [facility] 1 14:17:38 Date Recorded Body height Heart rate Respiratory rate Body temperature Body mass index (BMI) Body weight Systolic And Diastolic Provider Name and Address Organization Details Last Updated DateTime 0 167.64 cm 80 /min 18 /min 99.4 [degF] 27.8 kg/m2 88406.8 9 g 130/70 mm[Hg] Amee Fernandez [facility] 0 16:46:05 Date Recorded Body height Heart rate Respiratory rate Body temperature Body mass index (BMI) Body weight Oxygen saturation Oxygen saturation in Arterial blood by Pulse oximetry Systolic And Diastolic Provider Name and Address Organization Details Last Updated DateTime 1 167.64 cm 73 /min 17 /min 98.2 [degF] 28.2 kg/m2 05078.6 6 g 99 % 99 % 126/84 mm[Hg] [facility] 1 15:18:39 Date Recorded Body temperature Provider Name a nd Address Organization Details Last Updated DateTime 04/26/2020 97.9 [degF] LEONEL ALEX , CERTIFIED PHARMACY TECHNICIAN [address], [place], [address], [facility] 04/26/2020 16:50:08 Date Recorded Body height Heart rate Respiratory rate Body mass index (BMI) Body weight Systolic And Diastolic Provider Name and Address Organization Details Last Updated DateTime 0 167.64 cm 82 /min 18 /min 29.9 kg/m2 06671.5 9 g 100/70 mm[Hg] Amee Jim [facility] 0 16:24:22 Social History Question Answer Notes LastModified by Organizat ion Details LastModified Time Tobacco Smoking Status Former Smoker stopped November 2018 Not Available [facility] 03/28/2020 03:27:20 Animal Exposure? Yes Informat ion not available 06/09/2018 What Is Your Level Of Caffeine Consumption? Occasional Tea\Soda [id number] Information not available 03/28/2020 What Type Of Diet Are You Following? REGULAR [id number] Information not available 03/28/2020 Which Illicit Or Recreational Drugs Have You Used? None [id number] Information not available 03/28/2020 Education 12 Some College Information not available 01/09/2017 Are There Any Guns Present In Your Home? No [id number] Information not available 03/28/2020 Hard Of Hearing Or Deaf In One Or Both Ears? No Information not available 01/09/2017 Legally Blind In One Or Both Eyes? No Information not available 01/09/2017 Live Alone Or With Others? With Others Information not available 06/09/2018 Marital Status Informatio n not available 01/09/2017 What Was The Date Of Your Most Recent Tobacco Screening? 02/15/2021 [email or web address] Information not available 02/15/2021 Do You Use Your Seat Belt Or Car Seat Routinely? Yes [id number] Information not available 03/28/2020 Seat Belts Used Routinely Yes Information not available 01/09/2017 Are You Sexually Active? Yes [id number] Information not available 03/28/2020 Smoke Alarm In Home Yes Information not available 01/09/2017 Do You Have Smoke And Carbon Monoxide Detectors In Your Home? Yes [id number] Information not available 03/28/2020 At What Age Did You Start Smoking Tobacco? 12 [id number] Information not available 03/28/2020 How Much Tobacco Do You Smoke? No [id number] Information not available 03/28/2020 General Stress Level High Information not available 06/09/2019 Do You Use Sunscreen Routinely? No [id number] Information not available 03/28/2020 How Many Years Have You Smoked Tobacco? 16 8 Yr Pack [id number] Information not available 03/28/2020 Sex: Unknown Functional Status Question Answer Note LastModified by Organizat ion Details LastModified Time What is your level of alcohol consumption? Occasional [id number] Information not available 03/28/2020 Do you or have you ever used smokeless tobacco? Never used smokeless tobacco [id number] Information not available 03/28/2020 Are you currently employed? Yes [id number] Information not available 03/28/2020 Are you able to walk independently without assistance or assistive devices? YESWOREST [id number] Information not available 03/28/2020 What is your occupation? [employer] Information not available 07/18/2017 Do you or have you ever used e-cigarettes or vape? Never used electronic cigarettes [id number] Information not available 03/28/2020 What is your exercise level? None [id number] Information not available 03/28/2020 Mental Status None recorded. Family History Relationship Description Onset Age of this Age Resolved Age Notes LastModified by Organization Details LastModified Time Mother Anxiety Not available 01/09/2017 15:23:07 Mother Migraine Not availabl e 01/09/2017 15:22:40 Brother Asthma Rene Not available 01/09/2017 15:21:12 Sister Malignant neoplastic disease Nehal e Cervic al Cancer /Ovari en Cancer Not available 01/09/2017 15:28:10 Father Arthritis Not availab le 01/09/2017 15:23:31 Father Transient cerebral ischemia rskrapates Not available 06/09 10:02:43 Daughter Migraine Not availa ble 01/09/2017 15:22:47 Maternal Uncle Arthritis Not available 2016 15:23:35 Medical History Condition Response Anxiety Disorder Y Kidney Stones N Seizures / Epilepsy N Cancer N Thyroid Problems N Allergies Y Anemia Y Constipation Y Chicken Pox Y Immunizations Vaccine Type Date Status Note Provider Nam e and Address Organization Details Recorded Time influenza, unspecified formulation 03/26/2018 completed Sandi varela [facility] 07/18/2017 15:55:06 Past Encounters Encounter ID Performer Location Encounter Start Date Encounter Closed Date Diagnosis/Indication Diagnosis SNOMED-CT Code Diagnosis ICD10 Code Diagnosis IMO Codes Diagnosis Note [id number] Venita Avery NP, S [facility] [address] [place] [address] 01/09/2017 15:04:17 01/09/2017 16:38:22 Persistent cough 570724208 R05 Tobacco user 309659549 Z 72.0 Anxiety disorder 06 F41.9 Hand pain 90378255 M79.6 41 [id number] Venita Avery NP, [facility] [address] [place] [address] 05/07/2017 16:00:28 05/07/2017 16:56:35 Fatigue 10949689 R53.83 [id number] Venita Avery NP, [facility] [address] [place] [address] 07/18/2017 15:38:30 07/18/2017 16:23:31 Sinus headache 0086921 R51 [id number] Venita Avery NP, [facility] [address] [place] [address] 06/09/2018 14:50:33 06/10/2018 09:31:46 Adult health examination 222015777 Z00.01 Body mass index 25-29 - overweight 153004746 Z68.28 Fatigue 83300619 R53.83 Cough 01177526 R05 Tobacco user 238676404 Z 72.0 Anxiety disorder 06 F41.9 may need to start anxiolytic such as sertraline in the future [id number] Venita Avery NP, [facility] [address] [place] [address] 09/10/2018 16:05:48 09/11/2018 11:10:06 Upper respiratory infection 07404867 J06.9 Vitamin D deficiency 347 80887 E55.9 Iron deficiency 07128682 E61.1 Pain of hip region 77595 002 M25.559 [id number] Venita Avery NP, [facility] [address] [place] [address] 01/13/2019 15:42:31 01/18/2019 13:30:43 Allergic reaction 001909382 T78.40XD Pruritic rash 17548141 L 28.2 [id number] Venita Avery NP, [facility] [address] [place] [address] 03/16/2019 16:42:59 03/16/2019 17:47:57 Fatigue 84774064 R53.83 labs [id number] Venita Avery NP, [facility] [address] [place] [address] 03/29/2019 09:31:47 03/29/2019 12:28:51 Iron deficiency 22059070 E61.1 Disorder o f vitamin B12 483284578 E53.8 Vitamin D deficiency 347 69939 E55.9 [id number] Venita Avery NP, [facility] [address] [place] [address] 04/29/2019 09:39:30 04/29/2019 10:22:30 Abdominal pain 01228813 R10.9 [id number] Venita Avery NP, [facility] [address] [place] [address] 05/14/2019 17:02:54 05/14/2019 18:04:30 Bronchitis 04967900 J40 Acute pharyngitis 718305 003 J02.9 [id number] Venita Avery NP, [facility] [address] [place] [address] 06/09/2019 09:39:03 06/09/2019 16:09:05 Adult health examination 692625968 Z00.01 History of angioedema 63 25340383 108 Z86.79 Dysuria 68541115 R30.9 Anxiety 80123880 F41.9 recommend counseling declines at this time- wld rather have [employer] crew boss and urolgist apptWill set this up after Accounting Administrative Assistant and Urologist appt are done [id number] Venita Avery NP, [facility] [address] [place] [address] 07/21/2019 15:32:03 07/21/2019 17:47:09 Epigastric pain 08508405 R10.13 [id number] Venita Avery NP, [facility] [address] [place] [address] 08/06/2019 11:47:59 08/06/2019 12:23:41 Pain in throat 260098278 R07.0 Respirator y tract congestion and cough 959494552 R05 [id number] Venita Avery NP, [facility] [address] [place] [address] 12/29/2019 16:43:47 01/04/2020 17:49:02 Urethritis 74900242 N34.2 follow up with UROLogy this month as scheduled Anxiety 81451636 F41.9 [id number] LEONEL ALEX APRN [facility] [address] [place] [address] 04/26/2020 16:22:14 04/26/2020 17:53:38 Thoracic back pain 566196754 M54.6 1. Start OTC ibuprofen/ tylenol as directed prn pain.2. Discussed prescripti on treatment options for pain. Patient wishes to start OTCs first. 3. Apply heat, put a warm water bottle, heating pad set on low, or warm cloth on your back. Do not go to sleep with a heating pad on your skin.4. Take short walks (10 to 20 minutes) every 2 to 3 hours. Avoid slopes, hills, and stairs until you feel better. Walk only distances you can manage without pain.5. Avoid heavy lifting or anything that worsens your back pain.6. Work note provided. Needs off today and tomorrow to rest back.7. Follow-up in 2 days if pain persists or sooner for worsening of pain.8. ER immediatel y for any loss of bladder/karen wel control. [id number] LEONEL ALEX [facility] [address] [place], [place] [address] 06/21/2020 16:16:37 06/21/2020 17:05:43 Pain of right testicle 0882553034 0538261 N50.811 Unable to get US scheduled today for evaluation . Highly concerned with testicular torsion based on physical exam and history. Advised him to go to the ER for evaluation KEYON. He agrees with this POC. 1. Go to the ER now without fail.2. Discussed potential causes for pain with most concerning being testicular torsion.3. Follow-up after ER visit. [id number] LEONEL ALEX [facility] [address] [place] [address] 10/31/2020 14:00:37 10/31/2020 14:59:08 Lower abdominal pain 71291691 R10.30 1. Schedule KUB to r/o nephrolith iasis 2. CBC w diff, CMP, ESR, CRP, UA today. 3. Monitor for any associatio n with food intake. 4. Avoid NSAIDs. 5. FU tomorrow. 6. Contact clinic or go to ED immediatel y for any high fevers, severe abdominal pain, or vomiting for greater than 12 hours with the inability to keep any foods down. Discussed potential for gas pains d/t for diffuse, nonspecifi c pains that resolved quickly. However, recommend KUB and labs to r/o appendicit is and nephrolith iasis. He agrees with this POC. [id number] LEONEL ISAI CERTIFIED PHARMACY TECHNICIAN [facility] [address] [place] [address] 02/15/2021 14:59:21 02/15/2021 17:01:23 Tick bite 46677149 W57.XXXA 1. No s/s of infection at this time.2. Return is you develop any fever, rash, body aches, or s/s of infection. 3. May apply power to groin area prior to physical activity to prevent irritation .4. Patient has not been vaccinated for covid19. Does not wish to be vaccinated . Health Concerns Section Related Observation LastModified by Organization Detai ls LastModified Time None Recorded Concern Status LastModified by Organization Details LastModified Time None Recorded Advance Directives Directive None Recorded Payers Insurance Date Sequence Insurance Name Policy Number Policy Tapia Covered Member ID Tapia Member ID Guarantor Name 06/22/2020 1 [place] AID[place] RODRIYORDY Chaney [id number] Denilson Chaney 06/22/2020 2 [place] Denilson Shiv [id number] Denilson Shiv 02/16/2021 [place] Denilson Shiv [id number] Denilson Shiv 04/02/2021 1 [place] Denilson Ferrarals [id number] Denilson Shiv 10/31/2020 1 [place] Denilson Shiv [id number] Denilson Chanye 11/15/2020 1 [place] Denilson Chaney [id number] Denilson Chaney 04/02/2021 1 [employer]OV[place] - ESSENTIAL CARE 2 (PPO) Denilson Chaney [id number] Denilson Chaney Notes Date Note Type Note Provider Name and Address Organization Details Recorded Time 12/29/19 20 text/htm l problems-MaleReported by PatientGU ProblemsFor location, patient reportspenis. For quality, patient reportscannot identify. For severity, patient reportsno pain. For duration, patient reportscannot identifyandsymptoms lasting over 2 weeks(intermittent). For associated symptoms, patient reportsno penile lesions/sores,no scrotal lesions/sores,no penile discharge, andno pain during urination.Has had ongoing skin sensation both on skin of penis & inside.At times this is prickly sensation.Has had w/u by UROLogist w/o conclusive findings.He is to f/u this month. Continues to occur intermittently in no particular pattern other than having dry skin after shaving penis. Anxiety/DepressionReported by PatientHPIFor quality, patient reportsincreased anxiety. For severity, patient reportsdenies suicidal ideations. For duration, patient reportscannot identifyandsymptoms lasting over 2 weeks. For context, (no particular new stressors.does have 5 children which is stressful at times.).Requests referral for behavioral health. Venita Avery, GUSTAVO, S [address], [place], [address], [facility] 12/29/2019 17:50:15 04/26/20 20 text/htm l Back PainReported by PatientHPIFor quality, patient reportsdull. For severity, patient reportsmild (1-4)but reportssame. For aggravating factors, patient reportsmovement/positioningand twisting. For location, patient reportspain is not radiating. For duration, patient reportsacute. For onset/timing, patient reportsfirst episode. For context, patient reportstrauma(slipped and fell this morning). For associated symptoms, patient reportsno fever,no weak limbs,no numbness of the legs/feet,no tingling,no incontinence, andno shortness of breath.Patient has not tried any OTC medications for his pain. 35 y/o male presents with acute back pain. Travis Roe, [address], [place], [address], [facility] 04/27/2020 17:33:47 06/21/19 21 text/htm l Generic HPI TemplateReported by PatientHPIFor location, (right testicle). For quality, (throbbing pain). For severity, (moderate). For duration, (constant). For onset/timing, (yesterday evening). For context, (while at work). For aggravating factors, (walking, activity). For alleviating factors, (none). For associated symptoms, (right sided testicle swelling). 35 y/o male presents to the clinic today for acute right testicular pain. Symptoms started last night abruptly while working and have been constant. Upon arriving home from work he noted an irregular shape and enlargement of his right testicle. He denies any previous STIs, new sexual partners, penile discharge, dysuria, or testicular trauma. LEONEL ALEX APRN [address], [place], [address], [facility] 06/22/2020 10:11:02 11/01/19 21 text/htm l Abdominal PainReported by PatientAbdominal PainFor quality, patient reportspain,sharp, andstabbing. For location, patient reportsllqandrlq. For severity, patient reportsmild. For duration, patient reportsintermittentandstarted: (4 days ago). For onset/timing, patient reportswax/wane. For modifying factors, patient reportsnothing gives reliefandnothing makes it worse. For associated symptoms, patient reportsno fever,no chills,no blood in the urine,no heartburn, andno shortness of breath. For other, patient reportssexually active. 35 y/o male presents to the clinic today for bilateral lower quadrant pain. He reports the pain started about 4 days ago and has been intermittent. He describes the pain as started in the lower abdomen, but at times radiates across the abdomen. He denies any nausea, vomiting, fever, dysuria, or flank pain. He reports regular bowel movement on a daily baisis without melena or hematochezia. LEONEL ALEX, CERTIFIED PHARMACY TECHNICIAN [address], [place], [address], [facility] 11/01/2020 17:10:59 02/16/20 21 text/htm l Rash/Skin LesionReported by PatientHPIFor quality, patient reportsitchybut reportsnot painful,not bleeding, andstable. For context, patient reportstick exposurebut reportsno new detergents or skin products,no one else with similar rash, andnot scratching. For location, patient reportsgenitalia. For severity, patient reportsmild. For duration, patient reportshas noted for <1 week. For onset/timing, patient reportsabrupt onset. For aggravating factors, patient reportsclothingandexercise. For associated symptoms, patient reportsno fever,no cold symptoms,no nausea,no vomiting,no diarrhea,no urinary symptoms,no chills,no fatigue, andno change in weight. For treatment history, patient reportsno history of treatment. 35 y/o male presents to the clinic today for a tick bite to his penis. Tick bite occured last night. He has noted some mild itching to his groin. He denies a rash, fever, chilld, or body aches. LEONEL ALEX, CERTIFIED PHARMACY TECHNICIAN [address], [place], [address], [facility] 02/15/2021 15:46:23
--- OUTSIDE RECORDS SUMMARY | 2025-02-25 15:55 | XMS_ITS | Data Portability ---
Author Organization [place] Fernandez Md [facility], autoContract Address [address] [facility] [place] [address] Assessment No assessment recorded. Plan of Treatment Reminders Order Date Submit Date Provider Last Modified By Organization Details Last Modified Time Details Appointments None recorded. Lab urinalysis, dipstick 2024 025 In-House Results, For Internal Use Only, Do Not Delete/merge, [id number] 12:03:24 unlisted lab - trichomonas amplified 2024 025 [facility] ([facility]) - [place], [address], [address], [place], [address], 14:56:08 CT + NG DNA, PCR, unspecified specimen 2024 025 [facility] ([facility]) - [place], [address], [address], [place], [address], 5 14:56:07 urinalysis, dipstick 2024 025 In-House Results, For Internal Use Only, Do Not Delete/merge, [id number] 15:05:12 Referral None recorded. Procedures None recorded. Surgeries None recorded. Imaging None recorded. Medication Orders Cipro 500 mg tablet 2024 025 [facility], [address] [facility] [place], [address], 12:17:53 Cipro 500 mg tablet 2024 025 [facility], [address] [place], [address], 11:57:57 promethazin e-DM 6.25 mg-15 mg/5 mL oral syrup 2024 025 [facility], [address] [place], [address], 14:27:44 benzonatate 200 mg capsule 2024 [facility] [place], [address] [place], [address], 14:27:44 amoxicillin 875 mg tablet 2024 [facility], [address] [place], [address], 05:01:11 acetaminoph en 300 mg-codeine 30 mg tablet 2024 025 [facility], [address] [place], [address], 14:29:20 amoxicillin 875 mg tablet 2024 025 [facility], [address] [place], [address], 05:01:11 Patient TargetsNo targets recorded. Patient Instructions Encounter Date Encounter Id Patient Instructions Last Modified By Organization Details Last Modified Time 11/22/2024 [id number] Patient discharged to self to home in stable condition. Follow up instructions given. Not available 11/23/2024 09:09:27 12/22/2024 [id number] Patient discharged to self to home in stablecondition. Follow up instructions given. Not available 12/22/2024 12:13:46 01/28/2025 [id number] chronic cough: care instructions Not available 01/28/2025 12:15:56 Patient discharged to self to home in stable condition. Follow up instructions given. Not available 01/28/2025 12:29:14 02/08/2025 [id number] blood in the urine: care instructions Not available 02/08/2025 15:05:11 Patient discharged to self to home in stable condition. Follow up instructions given. Not available 02/08/2025 15:05:52 02/18/2025 [id number] Patient discharged to self to home in stable condition. Follow up instructions given. Not available 02/18/2025 12:11:06 Reason for Referral None Reported. Results Created Date Observation Date Name Description Value Unit Range Abnormal Flag Note LastModifiedBy Organization Detail LastModifiedTime 02/09/2002/08/2025 URINA LYSIS , DIPST ICK leukocytes Small Not Available [facility] [address], [place], [address], 02/08/2025 23:35:45 02/09/2002/08/2025 URINA LYSIS , DIPST ICK nitrite negati ve Not Available [facility] [address], [place], [address], 02/08/2025 23:35:45 02/09/2002/08/2025 URINA LYSIS , DIPST ICK urobilinogen .2 Not Available [facility]ie [address], [place], [address], 02/08/2025 23:35:45 02/09/2002/08/2025 URINA LYSIS , DIPST ICK protein 30 Not Available [facility] [address], [place], [address], 02/08/2025 23:35:45 02/09/2002/08/2025 URINA LYSIS , DIPST ICK pH 6.5 Not Available [place] [facility] [address], [place], [address], 02/08/2025 23:35:45 02/09/20 25 02/08/2025 URINA LYSIS , DIPST ICK blood Large Not Available [facility]ie [address], [place], [address], 02/08/2025 23:35:45 02/09/20 25 02/08/2025 URINA LYSIS , DIPST ICK specific gravity 1.025 Not Available [facility]ie [address], [place], [address], 02/08/2025 23:35:45 02/09/20 25 02/08/2025 URINA LYSIS , DIPST ICK ketone Negati ve Not Available [facility] [address], [place], [address], 02/08/2025 23:35:45 02/09/20 25 02/08/2025 URINA LYSIS , DIPST ICK bilirubin Negati ve Not Available [facility] [address], [place], [address], 02/08/2025 23:35:45 02/09/20 25 02/08/2025 URINA LYSIS , DIPST ICK glucose Negati ve Not Available [facility] [address], [place], [address], 02/08/2025 23:35:45 02/09/20 25 02/08/2025 urina lysis , dipst ick Leukocytes Small Not Available In-Hous e Results For Internal Use Only, Do Not Delete/merge, 02/08/2025 14:19:04 02/09/20 25 02/08/2025 urina lysis , dipst ick Nitrite negati ve Not Available In-House Results For Internal Use Only, Do Not Delete/merge, 02/08/2025 14:19:04 02/09/20 25 02/08/2025 urina lysis , dipst ick Urobilinogen .2 Not Available In-Ho use Results For Internal Use Only, Do Not Delete/merge, 02/08/2025 14:19:04 02/09/20 25 02/08/2025 urina lysis , dipst ick Protein 30 [...] 14:19:04 02/09/2002/08/2025 urina lysis , dipst ick Specific [place] 1.025 Not Available In-Mauricio se Results For Internal Use Only, Do Not Delete/merge, 02/08/2025 14:19:04 02/09/2002/08/2025 urina lysis , dipst ick Ketone Negati ve Not Available In-House Results For Internal Use Only, Do Not Delete/merge, 02/08/2025 14:19:04 02/09/20 25 02/08/2025 urina lysis , dipst ick Bilirubin Negati ve Not Available In-House Results For Internal Use Only, Do Not Delete/merge, 02/08/2025 14:19:04 02/09/2002/08/2025 urina lysis , dipst ick Glucose Negati ve Not Available In-House Results For Internal Use Only, Do Not Delete/merge, 02/08/2025 14:19:04 02/19/20 25 02/19/2025 GC/CH LAMYD IA - AMP N gonorrhoeae Negati ve negati ve Not Available [facility] ([facility] [address] [place], [address], 02/19/2025 14:56:07 02/19/20 25 02/19/2025 GC/CH LAMYD [...] red for clini geena use. Not Available [facility] ([facility]) [address] [place], [address], 02/19/2025 14:56:07 02/19/2002/19/2025 TRICH OMONA S - [...] red for clini geena use. Not Available [facility] ([facility]) [address] [place], [address], 02/19/2025 14:56:08 02/19/2002/18/2025 URINA LYSIS , DIPST ICK leukocytes Negati ve Not Available [facility] [address] [facility]. [address], [place], [address], 02/18/2025 17:07:27 02/19/20 25 02/18/2025 URINA LYSIS , DIPST ICK nitrite negati ve Not Available [facility] [address], [place], [address], 02/18/2025 17:07:27 02/19/2002/18/2025 URINA LYSIS , DIPST ICK urobilinogen .2 Not Available [facility] [address], [place], [address], 02/18/2025 17:07:27 02/19/20 25 02/18/2025 URINA LYSIS , DIPST ICK protein Negati ve Not Available [facility] [address], [place], [address], 02/18/2025 17:07:27 02/19/20 25 02/18/2025 URINA LYSIS , DIPST ICK pH 6.0 Not Available [facility] [address], [place], [address], 02/18/2025 17:07:27 02/19/2002/18/2025 URINA LYSIS , DIPST ICK blood Small Not Available [facility] [address], [place], [address], 02/18/2025 17:07:27 02/19/2002/18/2025 URINA LYSIS , DIPST ICK specific gravity 1.020 Not Available [facility] [address], [place], [address], 02/18/2025 17:07:27 02/19/20 25 02/18/2025 URINA LYSIS , DIPST ICK ketone Negati ve Not Available [facility] [address], [place], [address], 02/18/2025 17:07:27 02/19/20 25 02/18/2025 URINA LYSIS , DIPST ICK bilirubin Negati ve Not Available [facility] [address], [place], [address], 02/18/2025 17:07:27 02/19/20 25 02/18/2025 URINA LYSIS , DIPST ICK glucose Negati ve Not Available [facility] [address], [place], [address], 02/18/2025 17:07:27 02/19/20 25 02/18/2025 urina lysis , dipst ick Leukocytes Negati ve Not Available In-House Results For Internal Use Only, Do Not Delete/merge, 02/18/2025 12:02:28 02/19/2002/18/2025 urina lysis , dipst ick Nitrite negati ve Not Available In-House Results For Internal Use Only, Do Not Delete/merge, 02/18/2025 12:02:28 02/19/2002/18/2025 urina lysis , dipst ick Urobilinogen .2 Not Available In-Ho use Results For Internal Use Only, Do Not Delete/merge, 02/18/2025 12:02:28 02/19/2002/18/2025 urina lysis , dipst ick Protein Negati ve Not Available In-House Results For Internal Use Only, Do Not Delete/merge, 02/18/2025 12:02:28 02/19/2002/18/2025 urina lysis , dipst ick pH 6.0 Not Available In-House Results For Internal Use Only, Do Not Delete/merge, 02/18/2025 12:02:28 02/19/20 25 02/18/2025 urina lysis , dipst ick Blood Small Not Available In-House Results For Internal Use Only, Do Not Delete/merge, 02/18/2025 12:02:28 02/19/20 25 02/18/2025 urina lysis , dipst ick Specific [place] 1.020 Not Available In-[facility]auricio se Results For Internal Use Only, Do Not Delete/merge, 02/18/2025 12:02:28 02/19/20 02/18/2025 urina lysis , dipst ick Ketone Negati ve Not Available In-House Results For Internal Use Only, Do Not Delete/merge, [id number] 02/18/2025 12:02:28 02/19/2002/18/2025 urina lysis , dipst ick Bilirubin Negati ve Not Available In-House Results For Internal Use Only, Do Not Delete/merge, [id number] 02/18/2025 12:02:28 02/19/2002/18/2025 urina lysis , dipst ick Glucose Negati ve Not Available In-House Results For Internal Use Only, Do Not Delete/merge, [id number] 02/18/2025 12:02:28 Result Notes None recorded. Procedures Surgical History Date Name Laterality Status Provider Name and Address Organization Details Recorded Time Vasectomy completed Not Available [facility] 1 06/04/2023 21:06:06 Imaging Results None recorded. [...] Available Vitals Date Recorded Body height Body mass index (BMI) Body weight Body temperature Heart rate Respiratory rate Oxygen saturation Oxygen saturation in Arterial blood by Pulse oximetry Systolic And Diastolic Provider Name and Address Organization Details Last Updated DateTime 5 167.64 cm 27.6 kg/m2 24737.3 g 98.5 [degF] 86 /min 18 /min 99 % 99 % 115/72 mm[Hg] abad Fernandez Md [facility] 5 14:58:16 Date Recorded Body height Body mass index (BMI) Body weight Body temperature Heart rate Oxygen saturation Oxygen saturation in Arterial blood by Pulse oximetry Systolic And Diastolic Provider Name and Address Organization Details Last Updated DateTime 5 167.64 cm 26.3 kg/m2 15343.5 6 g 97.7 [degF] 51 /min 97 % 97 % 117/77 mm[Hg] Tori Fernandez Md [facility] 5 11:54:40 Date Recorded Body height Body temperature Body mass index (BMI) Body weight Oxygen saturation Oxygen saturation in Arterial blood by Pulse oximetry Heart rate Systolic And Diastolic Provider Name and Address Organization Details Last Updated DateTime 5 167.64 cm 98.4 [degF] 25.5 kg/m2 53759.9 4 g 98 % 98 % 77 /min 130/82 mm[Hg] tisha Fernandez Md [facility] 5 12:02:33 Date Recorded Body height Body mass index (BMI) Body weight Body temperature Heart rate Oxygen saturation Oxygen saturation in Arterial blood by Pulse oximetry Systolic And Diastolic Provider Name and Address Organization Details Last Updated DateTime 5 167.64 cm 26.1 kg/m2 94707.9 6 g 97 [degF] 55 /min 100 % 100 % 125/79 mm[Hg] Tori Fernandez Md [facility] 5 14:20:52 Date Recorded Body height Body temperature Oxygen saturation Oxygen saturation in Arterial blood by Pulse oximetry Heart rate Systolic And Diastolic Provider Name and Address Organization Details Last Updated DateTime 5 167.64 cm 98.4 [degF] 99 % 99 % 63 /min 113/77 mm[Hg] tisha Fernandez Md [facility] 5 11:56:19 Social History Question Answer Notes LastModified by Organizat ion Details LastModified Time Tobacco Smoking Status Former Smoker Not Available [facility] 04/04/2024 21:06:31 Are You Blind Or Do You Have Difficulty Seeing? No [id number] Information not available 04/04/2024 What Is Your Level Of Caffeine Consumption? Occasional [id number] Information not available 04/04/2024 Are You Deaf Or Do You Have Serious Difficulty Hearing? No [id number] Information not available 04/04/2024 What Type Of Diet Are You Following? REGULAR [id number].[id number] Information not available 04/04/2024 What Was The Date Of Your Most Recent Tobacco Screening? 11/22/2024 [email or web address] Information not available 11/22/2024 How Many Children Do You Have? 5 MIGRATION.[id number] [id number] Information not available 04/04/2024 What Is Your Relationship Status? MIGRATION.[id number] 0917 Information not available 04/04/2024 Has Tobacco Cessation Counseling Been Provided? No MIGRATION.[id number] 5198 Information not available 04/04/2024 Do You Have Difficulty Walking Or Climbing Stairs? No [id number].[id number] Information not available 04/04/2024 Sex: Unknown Functional Status Question Answer Note LastModified by [employer] Details LastModified Time Do you use any illicit or recreational drugs? No [id number] 00 Information not available 04/04/2024 Do you or have you ever used any other forms of tobacco or nicotine? No MIGRATION.[id number] 00 Information not available 04/04/2024 What is your level of alcohol consumption? None [id number] Information not available 04/04/2024 Are you currently employed? Yes [id number] 00 Information not available 04/04/2024 Do you have difficulty doing errands alone? No MIGRATION.[id number] 00 Information not available 04/04/2024 Are you able to care for yourself independently? Yes [id number].[id number] Information not available 04/04/2024 Do you have difficulty dressing, bathing, grooming, or toileting? No MIGRATION.[id number] 00 Information not available 04/04/2024 Do you or have you ever used any nicotine-free cigarettes, vape, or chewing tobacco? No [email or web address] Information not available 04/16/2024 Mental Status Question Answer Note LastModified by [employer] Details LastModified Time Do you have difficulty concentrating, remembering or making decisions? No [id number].[id number] 0 Information not available 04/04/2024 Family History Relationship Description Onset Age of this Age Resolved Age Notes LastModified by Organization Details LastModified Time Father No current problems or disability [email or web address] Not available 04/16 08:54:23 Mother No current problems or disability [email or web address] Not available 04/16 08:54:23 Medical History No medical history recorded. Past Encounters Encounter ID Performer Location Encounter Start Date Encounter Closed Date Diagnosis/Indication Diagnosis SNOMED-CT Code Diagnosis ICD10 Code Diagnosis IMO Codes Diagnosis Note [id number] LILI [facility]ZAR[facility] [address] [place] [id number] 11/19/2021 00:00:00 11/19/2021 10:23:43 [id number] LILI [address]ZAR[address] [place] [id number] 02/07/2022 00:00:00 02/08/2022 08:28:56 [id number] LILI NA[address]AR[address] [place] [id number] 01/15/2023 00:00:00 01/15/2023 17:25:09 [id number] MD ARACELY Cisneros [address] [place] [address] 09/03/2023 00:00:00 09/03/2023 17:40:13 [id number] LILI NAZARIO [place] [address] 09/23/2023 00:00:00 09/23/2023 16:16:19 [id number] LILI NAZARIO [address] [place] [id number] 01/30/2024 00:00:00 02/02/2024 08:16:01 [id number] MD ARACELY Cisneros [address] [place] [address] 03/15/2024 00:00:00 03/15/2024 09:29:11 [id number] LILI NAZ[address] [place] [address] 12/15/2023 00:00:00 12/15/2023 17:42:01 [id number] LILI NAZARIO [address] [place] [address] 04/16/2024 08:32:47 04/21/2024 17:52:59 Dental abscess 316781840 K04.7 pt advised to complete course of antibiotic s, alternate tylenol/ib u for fever, stay well hydrated, and to follow up to clinic if symptoms don't resolve or worsen [id number] LILI [facility] [address] [place] [address] 05/07/2024 10:01:17 05/11/2024 15:44:10 Dental abscess 374126864 K04.7 pt advised to complete course of antibiotic s, alternate tylenol/ib u for fever, stay well hydrated, and to follow up to clinic if symptoms don't resolve or worsen [id number] LILI NAZ[facility] [address] [place] [address] 06/11/2024 09:37:18 07/14/2024 14:14:31 Sore gums 07918625 K08.89 use as directed, call with update next week. [id number] LILI NAZARIO [place], [place] [address] 06/23/2024 09:22:07 07/16/2024 16:49:59 Food poisoning 24511708 A05.9 advised pt to push fluids such as gatorade or water, alternate tylenol and ibu for fever and call if he wants zofran. [id number] LILI NAZARIO [address] [place] [address] 08/10/2024 08:55:34 08/12/2024 16:32:40 Diarrhea 99329818 R19.7 pt advised to complete course of antibiotic s, alternate tylenol/ib u for fever, stay well hydrated, and to follow up to clinic if symptoms don't resolve or worsen [id number] LILI NAZARIO [facility] [place], [place] [address] 08/16/2024 10:59:34 08/17/2024 10:48:45 Scoliosis deformity of spine 343358654 M41.9 x ray demostrate s scoliosis. pt has meds at home that were prescribed last january, lidocaine patch prn, pt is going to try PT as wel. [id number] LILI NAZARIO [address] [place] [id number] 09/30/2024 11:45:16 09/30/2024 12:35:19 Hypoglycemia 259502370 E16.2 14881 advised pt that he needs to eat every 4-5 hours with high protein snack. stay well hydrated. follow up if neede.d [id number] LILI NAZARIO [address] [place] [address] 10/26/2024 11:02:39 10/28/2024 13:47:35 Dental abscess 160925858 K04.7 7822 pt advised to complete course of antibiotic s, alternate tylenol/ib u for fever, stay well hydrated, and to follow up to clinic if symptoms don't resolve or worsen [id number] LILI NAZARIO [address] [place] [address] 11/22/2024 14:44:50 11/25/2024 12:03:30 Dental abscess 585115162 K04.7 7822 pt advised to complete course of antibiotic s, alternate tylenol/ib u for fever, stay well hydrated, and to follow up to clinic if symptoms don't resolve or worsen [id number] LILI NAZARIO [address] [place], [place] [address] 12/22/2024 11:26:24 12/29/2024 15:43:12 Dental abscess 479246562 K04.7 7822 pt states merary is too strong, will do tylenol 3 instead. continue to monitor. [id number] LILI NAZARIO [address] [place] [address] 01/28/2025 11:49:55 01/31/2025 14:58:04 Viral upper respiratory tract infection 444152768 J06.9 [id number] pt advised to complete course of antibiotic s, alternate tylenol/ib u for fever, stay well hydrated, and to follow up to clinic if symptoms don't resolve or worsen Chronic cough 23063490 R 05.3 31848 use as directed. [id number] LILI NAZARIO [address] [place] [address] 02/08/2025 14:13:31 02/08/2025 15:04:10 [facility] 572267869 R31.0 440052 pt advised to complete course of antibiotic s, d/c amoxicilli n that he was taking and follow up in one week. if symptoms haven't approved will set up with referral to urology. [id number] LILI NAZARIO - [place] [address] [place] [id number] 02/18/2025 11:39:42 02/22/2025 12:40:36 Dysuria 49794279 R30.0 [id number] continue abx, will check urine for STI [...] Member ID Tapia Member ID Guarantor Name 02/19/2025 1 AHMET DENISE - [facility] 2 (PPO) Denilson Chaney [id number] 1 Denilson Chaney Notes Date Note Type Note Provider Name and Address Organization Details Recorded Time 11/23/19 25 text/htm l Dental/ToothacheReported by PatientPainFor alleviated with, patient reportsacetaminophen. For characterized as, patient reportsmild. For current level of pain, patient reportsmoderate pain: 3/10 to 5/10. For current therapies include, patient reportstylenol. For exacerbated by, patient reportsmovementandphysical exertion. For onset, patient reports4 day(s) ago.DAIANA DentalFor dental, patient reportshas not been to dentistbut reportshas appointment with dentist coming up. pt has tooth pain on the right side of his mouth mostly but is going down into his jaw line he had antibiotics a while back but was not able to get into the dentist he said it stopped hurting so he wasn't worried about it but then it started hurting again this weekend. ABELARDO RUBALCAVA PA-C [address], [place], [address], [place] Fernandez Md [facility] 11/23/2024 09:09:39 12/23/19 25 text/htm l Patient is wanting to change the script that the dentist gave him. Patient is hoping to tylenol #3 instead of hydrocodone. ABELARDO RUBALCAVA PA-C [address], [place], [address], [place] - Ben Fernandez Md [facility] 12/22/2024 12:14:09 01/29/20 25 text/htm l Sinusitis/AllergyReported by PatientHPIFor associated symptoms, patient reportsnasal discharge from both nostrils,nausea or vomiting,headache forehead,facial pain bilaterally,sinus pain diffuse,thick phlegm in throat,constantly clearing the throat,nasal discharge,nasal passage blockage bilaterally, andnasal itchingbut reportsno fever,no weight loss,no hemoptysis,no hematemesis,no difficulty breathing,no feeling of strangulation,no sore throat,no ear fullness,no eye itching,no pain behind the eyes, andno skin itching. For severity, patient reportsfrequent breathing through the mouth. For location, patient reportsfrontal. DiarrheaReported by PatientHPIFor quality, patient reportsworseningandwatery. For associated symptoms, patient reportsnauseaandvomitingbut reportsno abdominal pain,no excess gas,no fever,no rash,no joint pain,no weight loss,no heartburn,no blood in stool,no mucus in stool,no black or tarry stools,no weakness, andno nutrient deficiency. For onset/timing, patient reports1-3 times a day. For duration, (present since this morning). VomitingReported by PatientHPI:For associated symptoms, patient reportsheadache,nausea, anddiarrheabut reportsno abdominal pain,no excess gas,no fever,no chills,no frequent coughing,no sore throat,no rash,no weight loss,no decreased appetite,no dry heaves,no heartburn,no hematuria,no hematochezia,no mucus in stool,no melena,no weakness, andno fatigue. For quality, patient reportsnot changing. For duration, patient reports1 days. For onset/timing, patient reports1-3 times a day. For alleviating factors, patient reportsnothing gives relief. For aggravating factors, patient reportsnothing makes it worse. pt. is here today for his throat being itchy, throwing up, diarrhea, and runny nose. pt. states that he thinks he may be getting the flu. ABELARDO RUBALCAVA PA-C [address], [place], [address], [place] Fernandez Md [facility] 01/28/2025 12:31:38 02/09/20 text/htm l HematuriaReported by PatientHPIFor quality, patient reportsblood color bright red. For severity, patient reportsno pain. Patient states that he peed blood this morning but he is not having any pain. ABELARDO RUBALCAVA PA-C [address], [place], [address], [place] Fernandez Md [facility] 02/08/2025 15:06:13 02/19/20 text/htm l HematuriaReported by PatientHPIFor associated symptoms, patient reportshematuriabut [...] pain. ABELARDO RUBALCAVA PA-C [address], [place], [address], [place] Fernandez Md [facility] 02/18/2025 12:11:25
[2025-02-25 16:00] VITALS: BP 125/77; PULSE 79; RESP 18; TEMP 37; O2SAT 100
--- NOTE | 2025-02-25 16:28 | ED_ITS ---
HPI - Male Genitourinary 2 General: Chief complaint: Urogenital-Male Stated complaint: blood in stool (dark) Time Seen by Provider: 02/25/25 16:12 Source: patient Mode of arrival: ambulatory Limitations: no limitations History of Present Illness: 39-year-old male that states he has been having hematuria over the last year. He states he has been worked up with his PCP he is currently been on antibiotics but had normal UAs and STI testing. States he had a cystoscope a year ago that was normal but they did find a hydrocele he states that recently over the last 1 to 2 weeks he has noticed some slight blood in his semen. He denies any pain denies any fevers Related Data Allergies Allergy/AdvReac Type Severity Reaction Status Date / Time No Known Allergies Allergy Verified 02/25/25 16:18 Physical Exam 2 Const: COMMON NORMALS: no acute distress, patient oriented x3 and healthy appearing HENMT: COMMON NORMALS: normocephalic and atraumatic HEAD & SCALP: n ormocephalic and atraumatic Eye: COMMON NORMALS: conjunctivae normal CONJUNCTIVA: Yes conjunctivae normal Neck/C-Spine: COMMON NORMALS: full ROM and supple Chest: COMMONS NORMALS: normal inspection of the chest Resp: COMMON NORMALS: normal respiratory effort Cardio: COMMON NORMALS: regular rate RATE: regular rate GI: COMMON NORMALS: Normal to inspection, nondistended, normoactive bowel sounds present, Soft to palpation, non-tender and no masses PALPATION: Yes Soft to palpation Extremity: COMMON NORMALS: normal to inspection and full ROM Neuro: COMMON NORMALS: patient oriented x3, moves all extremities and no focal motor deficits Psych: COMMON NORMALS: mental status grossly normal, Normal thought process present and cooperative THOUGHT PROCESS: Normal thought process present Skin: COMMON NORMALS: no rashes or lesions noted and no wounds GENERAL SKIN EXAM: no rashes or lesions noted Course 2 Vital Signs: Vital signs: Vital Signs Temperature 98.6 F 02/25/25 16:00 Pulse Rate 79 02/25/25 16:00 Respiratory Rate 18 02/25/25 16:00 Blood Pressure 125/83 02/25/25 16:38 Pulse Oximetry 94 02/25/25 16:38 Oxygen Delivery Me thod Room Air 02/25/25 16:38 MDM - Male Medical Decision Making Patient presents here with a mass primary along with hematuria at home. Differential includes epididymitis UTI STD prostatitis. Patient is not having any pain he has no signs of prostatitis he has had no testicle pain no signs of epididymitis. Urinalysis here showed no bacteria's no signs UTI STD is unlikely. He has had this for a while I informed him he needs to follow back up with urology. Not seeing any emergent causes here feel he is stable for discharge did not discuss his results with him along with his need to follow back up with urology he understands agrees to plan. Medical Records I reviewed the patient's medical records. Lab Data I reviewed the patient's lab results. 02/25/25 16:02/25/25 16: Laboratory Results WBC 5.57 10^3/uL (3.29-11.43) 02/25/25 16: RBC 4.84 10^6/uL (3.85-5.65) 02/25/25 16: Hgb 13.70 g/dL (11.27-16.99) 02/25/25 16: Hct 42.6 % (37-53) 02/25/25 16: MCV 88.0 fl (82-101) 02/25/25 16: MCH 28.3 pg (27-33) 02/25/25 16: MCHC 32.2 g/dL (30-55) 02/25/25 16: RDW 13.2 % (12.1-15.1) 02/25/25 16: Plt Count 232 10^3/cmm (157-399) 02/25/25 16: MPV 10.0 fL (7.4-10.4) 02/25/25 16: Neut % (Auto) 54.8 % 02/25/25 16: Lymph % (Auto) 34.6 % 02/25/25 16: Swain % (Auto) 10.2 % 02/25/25 16: Eos % (Auto) 0.0 % 02/25/25 16: Baso % (Auto) 0.2 % 02/25/25 16: Neut # (Auto) 3.05 10^3/uL (1.8-7.7) 02/25/25 16: Lymph # (Auto) 1.9 10^3/uL (0.8-4.8) 02/25/25 16:29 Swain # (Auto) 0.6 10^3/uL (0.2-0.9) 02/25/25 16: Eos # (Auto) 0.0 10^3/uL (0.0-0.8) 02/25/25 16:29 Baso # (Auto) 0.0 10^3/uL (0.0-0.1) 02/25/25 16: Nucleated RBC % (auto) 0 % 02/25/25 16: Nucleated RBCs # 0.0 /100WBC 02/25/25 16: PT 13.50 SECONDS (12.1-14.9) 02/25/25 16: INR 0.96 (0.8-1.2) 02/25/25 16:29 Sodium 140 mmol/L (136-145) 02/25/25 16:29 Potassium 3.5 mmol/L (3.5-5.1) 02/25/25 16: Chloride 102 mmol/L (98-107) 02/25/25 16:29 Carbon Dioxide 25 mmol/L (22-29) 02/25/25 16: Anion Gap 16.5 (5-19) 02/25/25 16: BUN 7 mg/dL (6-20) 02/25/25 16: Creatinine 0.8 mg/dL (0.7-1.2) 02/25/25 16: GFR Calculation 108.8 mL/min (90-130) 02/25/25 16: Glucose 110 mg/dL (65-115) 02/25/25 16:29 Calculated Osmolality 289 mOsm/kg (285-295) 02/25/25 16: Calcium 9.9 mg/dL (8.5-10.5) 02/25/25 16: Total Bilirubin 0.7 mg/dL (0.15-1.2) 02/25/25 16:29 AST 17 U/L (0-40) 02/25/25 16:29 ALT 17 U/L (0-41) 02/25/25 16: Alkaline Phosphatase 62 U/L (40-130) 02/25/25 16: Total Protein 7.4 g/dL (6.6-8.7) 02/25/25 16:29 Albumin 4.7 g/dL (3.5-5.2) 02/25/25 16:29 Globulin 2.7 g/dL (1.3-4.6) 02/25/25 16:29 Urine Color Yellow (Yellow) 02/25/25 16:51 Urine Appearance Clear (CLEAR) 02/25/25 16:51 Urine pH 6.5 (5-7) 02/25/25 16:51 Ur Specific [place] 1.016 (1.005-1.030) 02/25/25 16:51 Urine Protein Negative (Negative) 02/25/25 16:51 Urine Glucose (UA) Negative (Normal) 02/25/25 16:51 Urine Ketones Negative (Negative) 02/25/25 16:51 Urine Blood Negative (Negative) 02/25/25 16:51 Urine Nitrate Negative (Negative) 02/25/25 16:51 Urine Bilirubin Negative (Negative) 02/25/25 16:51 Urine Urobilinogen 1.0 mg/dL (Negative) 02/25/25 16:51 Ur Leukocyte Esterase Negative (Negative) 02/25/25 16:51 Amorphous Sediment Not Reportable 02/25/25 16:51 No radiology studies performed this visit Discharge Plan Discharge Patient Disposition: Home Clinical Impression: Hematuria, Hematospermia Condition: Stable Discharge Orders: Discharge ED (Routine); Ordered 02/25/25 Ordered By: Callum Ron Discharge Diet: Advance as tolerated Discharge Activity: Resume usual activity Patient Instructions: Hematuria (ED) Print Language: Omani Coding Level of Care Code ED [employer] Supervisor for Sunil Paulino
[2025-02-25 16:38] VITALS: BP 125/83; O2SAT 94
[2025-02-25 16:40] LABS: Hematocrit 42.6 % (37-53); Hemoglobin 13.70 g/dL (11.27-16.99); Mean Corpuscular HGB Conc 32.2 g/dL (30-55); Mean Corpuscular Hemoglobin 28.3 pg (27-33); Mean Corpuscular Volume 88.0 fl (82-101); Nucleated Red Blood Cells % 0 %; Platelet Count 232 10^3/cmm (157-399); Red Blood Count 4.84 10^6/uL (3.85-5.65); White Blood Count 5.57 10^3/uL (3.29-11.43)
[2025-02-25 16:52] LABS: INR 0.96 (0.8-1.2); Prothrombin Time 13.50 SECONDS (12.1-14.9)
[2025-02-25 16:55] LABS: Add Urine Microscopic? NO
[2025-02-25 16:56] LABS: Alanine Aminotransferase 17 U/L (0-41); Albumin Level 4.7 g/dL (3.5-5.2); Alkaline Phosphatase 62 U/L (40-130); Anion Gap 16.5 (5-19); Aspartate Amino Transferase 17 U/L (0-40); Blood Urea Nitrogen 7 mg/dL (6-20); Calcium 9.9 mg/dL (8.5-10.5); Carbon Dioxide 25 mmol/L (22-29); Chloride 102 mmol/L (98-107); Globulin 2.7 g/dL (1.3-4.6); Glucose 110 mg/dL (65-115); Osmolality Calculated 289 mOsm/kg (285-295); Potassium 3.5 mmol/L (3.5-5.1); Sodium 140 mmol/L (136-145); Total Protein 7.4 g/dL (6.6-8.7)
[2025-02-25 17:02] LABS: Glucose Urine UA Negative (Normal); Nitrate Urine Negative (Negative); Specific Gravity, Urine 1.016 (1.005-1.030)
[2025-02-25 17:20] VITALS: BP 125/83; PULSE 58; RESP 16; O2SAT 100
[2025-02-25 17:20] LABS: Charge for UA Resulting for Rev
[2025-02-25 18:29] LABS: Neisseria Gonorrhea NOT DETECTED (Negative)
== END 2025-02-25 17:21 | disposition home or self-care (01) ==
PROVIDERS: Emergency Provider Emergency Medicine
DX: R31.9 Hematuria, unspecified (principal); R36.1 Hematospermia
CPT/HCPCS: 80053; 81003; 85025; 85610; 87491; 87591; 99283